=== PATIENT | male | born 1990 | race Caucasian/White ===

== ENCOUNTER → 2017-04-23 08:51 | Emergency (ER) | payer OTHER ==
[~2017-04-23 08:51] MED LIST: Amoxicillin/Clavulanate TAB* 875 MG PO ONE; Ibuprofen TAB* 600 MG ONE; Ibuprofen TAB* 600 MG PO ONE
[2017-04-23 08:58] VITALS: BP 111/68
--- NOTE | 2017-04-23 10:13 | ED ---
Bite Injury/Animal - HPI Summary HPI Summary: Pt here w/ dog bite to face and nose at 800 today. Was attempting to take a dog' s temperature while she was in her crate and the dog turned and bit him in the face. He has 2 lacs to his forehead and 1 to his nose. The pt and the dog are both UTD on imms. Pt took ibuprofen prior to arrival and is comfortable at this time. No LOC or other injuries to report. - History of Current Complaint Chief Complaint: EDAnimalBite Stated Complaint: DOG BITE Time Seen by Provider: 04/23/17 09:12 Hx Obtained From: Patient Pain Intensity: 6 - Allergies/Home Medications Allergies/Adverse Reactions: Allergies Allergy/AdvReac Type Severity Reaction Status Date / Time No Known Allergies Allergy Verified 04/23/17 08:59 PMH/Surg Hx/FS Hx/Imm Hx Previously Healthy: Yes Endocrine/Hematology History: Denies: Hx Anticoagulant Therapy, Hx Blood Disorders, Autoimmune Disease Infectious Disease History: No Infectious Disease History: Denies: Hx of Known/Suspected MRSA, Traveled Outside the in Last 30 Days - Family History Known Family History: Positive: None - Social History 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[place] Alcohol Use: Occasionally Hx Substance Use: No Substance Use Type: Reports: None Hx Tobacco Use: No Smoking Status (MU): Never Smoked Tobacco Review of Systems Constitutional: Negative Eyes: Negative Negative: Photophobia, Blurred Vision, Diplopia Negative: Dental Pain Psychological: Normal All Other Systems Reviewed And Are Negative: Yes Physical Exam Triage Information Reviewed: Yes Vital Signs On Initial Exam: Initial Vitals Temp Pulse Resp BP Pulse Ox 97.1 F 67 17 111/68 99 04/23/17 08:55 04/23/17 08:55 04/23/17 08:55 04/23/17 08:55 04/23/17 08:55 Vital Signs Reviewed: Yes Appearance: Positive: Well-Appearing, No Pain Distress, Well-Nourished Skin: Positive: Warm - 2 lacerations on Lt forehead - 1cm x 2mm and 0.75cm x 2mm - oozing blood, irregular borders; 0.5cm x 2mm linear lacteration over Rt inferior aspect of nare - not all the way through, oozing blood; 0.75cm laceration along medial border of septum (not involving ....) - oozing blood, not all the way through, oozing blood Head/Face: Positive: Other - see above Eyes: Positive: Normal, EOMI, LINDY, Conjunctiva Clear ENT: Positive: Hearing grossly normal Neck: Positive: Supple, Nontender Respiratory/Lung Sounds: Positive: Breath Sounds Present Cardiovascular: Positive: Normal Musculoskeletal: Positive: Normal, Strength/ROM Intact Neurological: Positive: Normal, Alert, Oriented to Person Place, Time, CN Intact II-III Psychiatric: Positive: Normal Procedures - Laceration/Wound Repair 1 Location: face - Lt forehead, medial Description: Irregular - y-shaped Anesthesia: Local, Lido, Epi Length, Depth and Shape: 0.5cm x 3mm Betadine Prep?: Yes Irrigated w/ Saline (ccs): 250 - sterile saline Laceration/Wound Explored: clean Closure: Single Layer Suture Type: Prolene - 6-0 Number of Sutures: 3 Layer Closure?: No Sterile Dressing Applied?: Yes - triple anbx + tegaderm 2 Location: face - Lt forehead, lateral Description: Irregular - T-shaped Anesthesia: Local, Lido, Epi Length, Depth and Shape: 0.75cm x 2mm Betadine Prep?: Yes Irrigated w/ Saline (ccs): 250 - sterile saline Laceration/Wound Explored: clean Closure: Single Layer Suture Type: Prolene - 6-0 Number of Sutures: 6 Layer Closure?: No Sterile Dressing Applied?: Yes - triple anbx + tegaderm 3 Location: face Description: Linear - through and through Rt hare Anesthesia: Local, 2.0%, Lido Length, Depth and Shape: 0.75cm x through Betadine Prep?: Yes Irrigated w/ Saline (ccs): 250 - sterile saline Laceration/Wound Explored: clean Closure: Single Layer Suture Type: Prolene - 6-0 Number of Sutures: 5 Layer Closure?: No Sterile Dressing Applied?: Yes - triple anbx 4 Location: face - Rt medial septum, anterior (mucosal surface only - not through dermis Description: Linear Anesthesia: Local, 2.0%, Lido Length, Depth and Shape: 0.5cm x 3mm - oozing blood Betadine Prep?: Yes Irrigated w/ Saline (ccs): 250 - sterile saline Laceration/Wound Explored: clean Closure: Single Layer Suture Type: Chromic - 5-0 Number of Sutures: 2 Layer Closure?: No Sterile Dressing Applied?: Yes - triple anbx Diagnostics - Vital Signs Vital Signs Temp Pulse Resp BP Pulse Ox 04/23/17 08:58 97.3 F 66 17 111/68 100 04/23/17 08:55 97.1 F 67 17 111/ 99 - Laboratory Lab Statement: Any lab studies that have been ordered have been reviewed, and results considered in the medical decision making process. Bite Injury Course/Dx - Course Course Of Treatment: Pt here w/ dog bite to face - multiple lacerations w/ 2 forehead lacs and complicated Rt nasal lac. All areas copiously irrigated and closed. Pt tolerated well. Explained dangers of infection w/ closure of animal bites however given that they are on his face, closed for asthetics. The septum was closed for bleeding control. Discussed with Dr. Candelario who advised in closure techniques and will see pt in follow-up. Pt will call today to schedule an appointment in 6 days (earliest week day for suture removal). Reviewed danger s/sx of when to return to ED - pt agrees w/ plan. - Diagnoses Provider Diagnosis: Dog bite of forehead, Dog bite of nose - Provider Notifications Discussed Care Of Patient With: Dr. Candelario Discharge - Discharge Plan Condition: Stable Disposition: HOME Prescriptions: Amoxicillin/Clavulanate TAB* [Augmentin TAB 875*] 875 mg PO BID #19 tab HYDROcodone/ACETAMIN 5-325 MG* [[place] 5-325 TAB*] 1 tab PO Q6H PRN #15 tab MDD 4 PRN Reason: Pain Patient Education Materials: Animal Bite (ED), Care For Your Stitches (ED), Facial Laceration (ED) Referrals: Ross Candelario MD [Medical Doctor] - Additional Instructions: Keep dressing in place over forehead for 48 hours - after this time, you may remove - gently wash area with soap and water daily - rinse well and apply triple antibiotic ointment. You may also rinse with saline solution and/or apply an epsom salt compress for 5-10 minutes to reduce swelling and aid in mild drainage to prevent infection. Furthermore, you may apply ice to areas to reduce pain and swelling. Complete antibiotics. Continue ibuprofen with food - 600mg every 6 hours as needed for pain and swelling. You may alternate with acetaminophen 650mg every 6 hours for pain as well. For breakthrough pain, you may take norco. Do not operate machinery while taking this. Follow-up with plastic surgeon in 5-6 days. Call today to schedule an appointment. *If you develop redness, swelling, purulent drainage, fever, chill, streaking, return to ED
== END | disposition home or self-care (01) ==
LOC: ED 08:51
DX: S01.85XA Open bite of other part of head, initial encounter (principal); S01.25XA Open bite of nose, initial encounter; W54.0XXA Bitten by dog, initial encounter; Y93.9 Activity, unspecified; Y92.9 Unspecified place or not applicable; Y99.9 Unspecified external cause status
CPT/HCPCS: 12015; 99282; A9270-GY

== ENCOUNTER 2017-04-24 19:43 | Emergency (ER) | payer OTHER ==
[2017-04-24 20:05] VITALS: BP 127/68
--- NOTE | 2017-04-24 20:24 | UC ---
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 He went to [facility] and had sutures placed on 2 small wounds on forehead, R naris, and in cartilage on R septum (chromic gut). Was told to keep tegaderm dressing on for 48 hours, but one of the wounds started oozing blood today and pt not sure if it is pulling apart. - History Of Current Complaint Chief Complaint: UCGeneralIllness Stated Complaint: WOUND RECHECK Time Seen by Provider: 04/24/17 20:00 Hx Obtained From: Patient Onset/Duration: Sudden Onset - Allergies/Home Medications Allergies/Adverse Reactions: Allergies Allergy/AdvReac Type Severity Reaction Status Date / Time No Known Allergies Allergy Verified 04/23/17 08:59 PMH/Surg Hx/FS Hx/Imm Hx Previously Healthy: Yes Other History Of: Negative For: Anticoagulant Therapy - Surgical History Surgical History: Yes Surgery Procedure, Year, and Place: R maxillary sinus enlargement and removal of soft tissue 2013 - Family History Known Family History: Positive: Hypertension - Social History Occupation: Student Alcohol Use: Occasionally Substance Use Type: None Smoking Status (MU): Never Smoked Tobacco - Immunization History Most Recent Tetanus Shot: Pt states up to date. Review of Systems Constitutional: Negative Skin: Other - dog bites to face Eyes: Negative ENT: Negative Respiratory: Negative Cardiovascular: Negative Gastrointestinal: Negative Genitourinary: Negative Motor: Negative Neurovascular: Negative Musculoskeletal: Negative Neurological: Negative Psychological: Negative All Other Systems Reviewed And Are Negative: Yes Physical Exam Triage Information Reviewed: Yes Appearance: Well-Appearing, No Pain Distress, Well-Nourished Vital Signs: Initial Vital Signs Temp 97.6 F 04/24/17 19:59 Pulse 68 04/24/17 19:59 Resp 18 04/24/17 19:59 BP 127/68 04/24/17 19:59 Pulse Ox 99 04/24/17 19:59 Vital Signs Reviewed: Yes Eye Exam: Normal Eyes: Positive: Conjunctiva Clear ENT Exam: Normal ENT: Positive: Normal ENT inspection, Hearing grossly normal, Pharynx normal, TMs normal Dental Exam: Normal Neck exam: Normal Neck: Positive: Supple, Nontender, No Lymphadenopathy Respiratory Exam: Normal Respiratory: Positive: Chest non-tender, Lungs clear, Normal breath sounds, No respiratory distress, No accessory muscle use Cardiovascular Exam: Normal Cardiovascular: Positive: RRR, No Murmur Musculoskeletal Exam: Normal Neurological Exam: Normal Neurological: Positive: Alert Psychological Exam: Normal Skin Exam: Other - sutures to forehead and nose intact, no erythema, purulent drainage, or dehiscence. Tegaderm removed, advised pt to cover wounds with ointment from here out. Course/Dx - Differential Dx - Laceration/Wound Provider Diagnoses: healing dog bite wounds to forehead and nose Discharge - Discharge Plan Condition: Stable Disposition: HOME Patient Education Materials: Facial Laceration (ED) Referrals: No Primary Care Phys,NOPCP [Primary Care Provider] - Additional Instructions: You can start dressing the wounds with plain antibiotic ointment 3-4 times per day and wash them lightly with your fingertips in the shower. Continue taking the augmentin as prescribed and return for suture removal in another 4 days. Your wounds are not showing signs of pulling apart or other problems.
== END 2017-04-24 20:22 | disposition home or self-care (01) ==
LOC: UCEAST 19:43
DX: S01.83XD Puncture wound without foreign body of other part of head, subsequent encounter (principal); S01.2 Open wound of nose; W54.0XXD Bitten by dog, subsequent encounter
CPT/HCPCS: 99211; G0463